=== PATIENT | female | born 1980 | race African-American/Black ===

== ENCOUNTER 2016-10-18 20:33 | Emergency (ER) | payer MEDICAID ==
[~2016-10-18] VITALS: Ht 175.3 cm; Wt 63.0 kg
[~2016-10-18 20:33] MED LIST: FERR-63 PO; HYDR-523 PO; IBUP-1509 PO
[2016-10-19] LABS: BASOPHILS % 0.4 % (0.0-2.0); EOSINOPHILS % 3.7 % (0.0-5.0); HEMATOCRIT. 32.6 % (36.0-48.0); HEMOGLOBIN. 10.2 g/dL (12.0-16.0); LYMPHOCYTES % 50.3 % (20.0-50.0); MEAN CORPUSCULAR HEMOGLOBIN 26.6 pg (28.0-32.0); MEAN CORPUSCULAR HGB CONC 31.3 g/dL (31.0-37.0); MEAN CORPUSCULAR VOLUME 84.9 fL (81.0-99.0); MONOCYTES % 8.8 % (2.0-8.0); NEUTROPHILS % 36.8 % (40.0-76.0); RED BLOOD CELL COUNT 3.84 mill/uL (4.2-5.4); RED CELL DISTRIBUTION WIDTH 19.4 % (11.6-14.6); WHITE BLOOD COUNT 3.7 x1000/uL (4.5-11.0)
[2016-10-19 00:07] LABS: INR 1.4; PARTIAL THROMBOPLASTIN TIME 30.5 sec (24.0-34.0); PROTHROMBIN TIME 14.2 sec
[2016-10-19 00:14] LABS: ALANINE AMINOTRANSFERASE 24 IU/L (13-61); ALBUMIN 2.8 g/dL (3.4-5.0); ANION GAP 14; CALCIUM 7.5 mg/dL (8.5-10.1); CARBON DIOXIDE 19 mEq/L (21-32); CHLORIDE 107 mEq/L (98-107); INDEX HEMOLYSI 1 (1-3); INDEX ICTERIC 1 (1-4); INDEX LIPEMIC 1 (1-3); LIPASE 115 IU/L (73-393); NT PRO B-TYPE NATRIURETIC PEP 1959 pg/mL (5-125); TROPONIN I 0.02 ng/mL (0.00-0.04); UREA NITROGEN BLOOD 7 mg/dL (7-21); eGFR > 60 mL/min (>60)
[2016-10-19 00:16] LABS: ETHANOL BLOOD 306 mg/dL
[2016-10-19 00:25] LABS: PLATELET 73 x1000/uL (130-400)
[2016-10-19 00:26] LABS: MEAN PLATELET VOLUME 8.9 fl (7.4-10.4)
[2016-10-19 01:08] LABS: CLARITY URINE CLOUDY (CLEAR); COLOR URINE DARK YELLOW (YELLOW); GLUCOSE URINE NEGATIVE (NEGATIVE); KETONES URINE NEGATIVE (NEGATIVE); LEUKOCYTE ESTERASE URINE NEGATIVE (NEGATIVE); NITRITE URINE NEGATIVE (NEGATIVE); OCCULT BLOOD URINE NEGATIVE (NEGATIVE); PH URINE 5.5 (4.5-8.0); PROTEIN URINE TRACE (NEGATIVE); SPECIFIC GRAVITY URINE 1.017 (1.005-1.030)
[2016-10-19 01:31] LABS: *AMPHETAMINES SCREEN URINE NEGATIVE (NEGATIVE); *BARBITURATES SCREEN URINE NEGATIVE (NEGATIVE); *COCAINE SCREEN URINE NEGATIVE (NEGATIVE); CANNABINOID URINE SCREEN NEGATIVE (NEGATIVE); ECSTASY MDMA SCREEN URINE NEGATIVE (NEGATIVE); METHADONE URINE SCREEN NEGATIVE (NEGATIVE); OPIATES URINE SCREEN NEGATIVE (NEGATIVE); PHENCYCLIDINE URINE SCREEN NEGATIVE (NEGATIVE)
[2016-10-19 01:35] LABS: SQUAMOUS EPITHELIAL CELL URINE 3+ /lpf (RARE/1+)
[2016-10-19 01:36] LABS: BACTERIA URINE NONE SEEN; RBC URINE 0-2 /hpf (0-2); WBC URINE 0-2 /hpf (0-2)
[2016-10-19 01:46] LABS: *BENZODIAZEPINES SCREEN URINE PRESUMTIVE POSITIVE (NEGATIVE)
[2016-10-19 03:00] VITALS: BP 112/80
[2016-10-19] MEDS ORDERED: LISI2.5T47 PO (23:32)
[2016-10-19] MEDS ORDERED: POTA10CA42 PO (23:32)
[2016-10-19] MEDS ORDERED: SPIR50TA26 PO (23:32)
[2016-10-19] MEDS ORDERED: CARV3.1242 PO (23:32)
[2016-10-19] MEDS ORDERED: FURO20TA4 PO (23:32)
[2016-10-19] MEDS ORDERED: ALEVE (23:33)
== END 2016-10-19 03:00 | disposition home or self-care (01) ==
LOC: ER 21:00
DX: R06.02 Shortness of breath (principal); R18.8 Other ascites; R00.0 Tachycardia, unspecified; F10.10 Alcohol abuse, uncomplicated; F17.200 Nicotine dependence, unspecified, uncomplicated; I50.9 Heart failure, unspecified; K74.60 Unspecified cirrhosis of liver; Y90.8 Blood alcohol level of 240 mg/100 ml or more; Z79.899 Other long term (current) drug therapy
CPT/HCPCS: 36415; 71010; 80053; 80305; 81001; 83690; 83880; 84484; 85025; 85610; 85730; 93005; 99285; G0482; Z7610

== ENCOUNTER 2018-04-24 23:33 | Emergency (ER) | payer MEDICAID ==
[~2018-04-24] VITALS: Ht 175.3 cm; Wt 58.0 kg
[~2018-04-24 23:33] MED LIST changes: +ACET-2178 PO; +CARV3.1242 PO; +FURO20TA4 PO; -HYDR-523 PO; -IBUP-1509 PO; +LISI2.5T47 PO; +MAGN70TA PO; +SPIR50TA5 PO
[2018-04-25] MEDS ORDERED: PENICILLIN V POTASSIUM 250MG TABLET PO ONE (02:15)
[2018-04-25] MEDS ORDERED: TRAMADOL 50MG TABLET PO ONE (02:15)
[2018-04-25] MEDS ORDERED: IBUPROFEN 600MG TABLET PO ONE (02:15)
[2018-04-25 02:21] VITALS: BP 98/65
== END 2018-04-25 02:21 | disposition home or self-care (01) ==
LOC: ER 23:33
DX: L03.211 Cellulitis of face (principal); I50.9 Heart failure, unspecified; Z79.899 Other long term (current) drug therapy
CPT/HCPCS: 99284

== ENCOUNTER 2018-05-10 18:50 | Emergency (ER) | payer MEDICAID ==
[~2018-05-10] VITALS: Ht 175.3 cm; Wt 58.0 kg
[2018-05-10 22:28] VITALS: BP 118/54
== END 2018-05-10 22:29 | disposition home or self-care (01) ==
LOC: ER 18:50
DX: K04.7 Periapical abscess without sinus (principal); I50.9 Heart failure, unspecified; Z98.890 Other specified postprocedural states
CPT/HCPCS: 99283